=== PATIENT | female | born 1995 | race Hispanic/Latino ===

== ENCOUNTER 2020-02-18 18:37 | Emergency (ER) | payer BC ==
[~2020-02-18] VITALS: Ht 149.9 cm; Wt 51.7 kg
[~2020-02-18 18:37] MED LIST: KEFLEX500 MG PO
--- NOTE | 2020-02-18 20:06 | Emergency Department Note ---
History of Present Illnes History of Present Illness Chief Complaint: COVID PUI History of Present Illness This is a 24 year old female arrives to the ED with concerns of a cold exposure. Patient states her was around a patient who was positive for [place] 19 given her exposure she is concerned about herself and her 7-month-old child. Patient denies any complaints at this time, denies any shortness of breath or fever, states was tested and was told he was negative, however, that was before he became symptomatic today. Historian: Patient, Family Member Arrival Mode: Car Onset quality: unable to specify Progression: unable to specify Chronicity: new Context: Reports other (recent Covid 19 exposure) Past Medical/Family History Physician Review I have reviewed the patient's past medical and family history. Any updates have been documented here. Past Medical History Recent Fever: No Clinical Suspicion of Infectio: No New/Unexplained Change in Ment: No Past Medical History: None Past Surgical History: Appendectomy Social History Smoking Cessation: Never Smoker Counseling Performed: No Alcohol Use: Occasional Any Illegal Drug Use: No TB Exposure/Symptoms: No Physically hurt or threatened: No Other Last Tetanus: UNK Any Pre-Existing Lines (PICC,: No Is patient up to date on immun: Yes Last Flu: UTD Last Pneumovax: DENIES Review of Systems Review of Systems Constitutional: Reports no symptoms EENTM: Reports no symptoms Cardiovascular: Reports no symptoms Respiratory: Reports no symptoms Gastrointestinal: Reports no symptoms Genitourinary: Reports no symptoms Musculoskeletal: Reports no symptoms Integumentary: Reports no symptoms Neurological: Reports no symptoms Psychological: Reports no symptoms Endocrine: Reports no symptoms Hematological/Lymphatic: Reports no symptoms Physical Exam Related Data Allergies: Coded Allergies: No Known Allergies (Unverified , 11/09/19) Triage Vital Signs Vital Signs Date Time Temp Pulse Resp B/P (MAP) Pulse Ox O2 Delivery O2 Flow Rate FiO2 02/18/20 18:42 98.9 88 16 121/79 98 Vital signs reviewed: Yes Physical Exam CONSTITUTIONAL Constitutional: Present well-developed, Present well-nourished HENT HENT: Present normocephalic, Present atraumatic, Present oropharynx clear/moist, Present nose normal HENT L/R: Present left ext ear normal, Present right ext ear normal EYES Eyes: Reports PERRL, Reports conjunctivae normal NECK Neck: Present ROM normal PULMONARY Pulmonary: Present effort normal, Present breath sounds normal CARDIOVASCULAR Cardiovascular: Present regular rhythm, Present heart sounds normal, Present capillary refill normal, Present normal rate GASTROINTESTINAL Abdominal: Present soft, Present nontender, Present bowel sounds normal GENITOURINARY Genitourinary: Present exam deferred SKIN Skin: Present warm, Present dry MUSCULOSKELETAL Musculoskeletal: Present ROM normal NEUROLOGICAL Neurological: Present alert, Present oriented x 3, Present no gross motor or sensory deficits PSYCHOLOGICAL Psychological: Present mood/affect normal, Present judgement normal Assessment & Plan Medical Decision Making MDM 24-year-old well-appearing female arrives the ED with concerns of Covid 19 given her exposure. Patient clinically appeared well, with no evidence of hypoxia or tachypnea. Urged outpatient Covid 19 testing. Urged patient to quarantine for 2 weeks. Patient evaluated in the current Covid 19 pandemic and disaster medicine care was provided-Patient understands she is welcome to return at any time Assessment & Plan Final Impression: (1) COVID-19 Depart Disposition: HOME, SELF-CARE Last Vital Signs Date Time Temp Pulse Resp B/P (MAP) Pulse Ox O2 Delivery O2 Flow Rate FiO2 02/18/20 18:42 98.9 88 16 121/79 98 Home Meds Active Scripts Cephalexin Monohydrate (KEFLEX) 500 Mg Capsule, 500 MG PO QID for 7 Days Prov:BREE REYES MD 11/09/19 ANNE CORTES DO Feb 18, 2020 20:06
== END 2020-02-18 19:36 | disposition home or self-care (01) ==
LOC: ER 18:46
DX: U07.1 COVID-19 (principal)
CPT/HCPCS: 99282

== ENCOUNTER 2021-07-19 21:38 | Emergency (ER) | payer BC, OTHER ==
[~2021-07-19] VITALS: Ht 149.9 cm; Wt 49.9 kg
[2021-07-19] MEDS ORDERED: IBUPROFEN600 MG PO (22:30)
[2021-07-19] MEDS ORDERED: AUGMENTIN 875-1 EACH PO (22:30)
== END 2021-07-19 22:56 | disposition home or self-care (01) ==
LOC: FSED 22:09
DX: H66.93 Otitis media, unspecified, bilateral (principal)
CPT/HCPCS: 99282